=== PATIENT | male | born 1935 ===

== ENCOUNTER 2017-11-04 12:11 | Outpatient (RCR) | payer MEDICARE, BC ==
[2017-10-29 10:31] VITALS: BP 155/72
--- NOTE | 2017-10-29 16:54 | ONCOLOGY CONSULTATION ---
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 ONCOLOGY/HEMATOLOGY HISTORY Patient is an 81-year-old male who was diagnosed with iron deficiency anemia, treated with iron supplementation, as patient could not tolerate oral iron supplement in the past. He had a colonoscopy about six years ago which was normal. His CBC on June 04, 2017 revealed a hemoglobin of 9.6, hematocrit 34.5%, serum iron was 23 and MCV was low at 69.6. He had positive antibodies to celiac disease dual antigen at 50 with positive gliadin antibody at 44 and positive tissue transglutaminase antibody IgA at 4. Patient received intravenous iron supplementation in the past with good response to the Injectafer with improvement of his hemoglobin to normal level. He presented recently with low hemoglobin at 11.8 g/dL and he received Injectafer again 750 mg weekly for two weeks, and despite the infusion of Injectafer, his ferritin was still low at 21, up from 10, and the patient was expected to have blood loss and that is why he got the sub-normal response to Injectafer, so the patient was sent to the manager printing, Dr. Gonzalez, who did colonoscopy and EGD, done on October 15, 2017. His duodenum showed normal mucosa and was negative for celiac sprue or Whipple disease, but a mass was found through his colonoscopy, and the biopsy of that mass came back positive for colonic adenocarcinoma moderately differentiated, and it was negative for microsatellite instability by immune stain. He had a CT chest done on October 25, 2017 which did not show any masses, maybe cysts in the right kidney and fatty infiltration of the liver, but there was no evidence of masses or nodules in his lung. CT abdomen and pelvis done on October 20, 2017 showed nonobstructing cecal tumor of significant size. It extended over a length of 8.5 cm and it measured 5.8 x 4.8 cm, but the other margins are indistinct in some areas, but no invasion of adjacent structures. There were multiple and larger right lower quadrant mesenteric lymph nodes which are suspicious for metastasis. PAST MEDICAL HISTORY 1. Celiac disease. 2. Patient is hard of hearing. 3. Recurrent iron deficiency anemia from his celiac disease and his recent cancer of the cecum. 4. Fractured left hip, March 2013. PAST SURGICAL HISTORY 1. Hip surgery. 2. Tonsillectomy. SOCIAL HISTORY The patient is a with one daughter. He is retired from [employer] industry. Denies any alcohol use for 20 years and no smoking for 35 years after one pack a day for 20 years. FAMILY HISTORY Maternal grandmother had bladder cancer and in her 60s. CURRENT MEDICATIONS 1. Calcium carbonate solution 500 mg/5 mL take 1000 mg by mouth daily. 2. Co-enzyme Q10 100 mg by mouth daily. 3. Vitamin B12 100 mcg by mouth daily. 4. Cyanocobalamin 50 mcg tablet, take one tablet by mouth daily. 5. Lactobacillus acidophilus probiotic 10 billion cell cap by mouth daily. 6. Multivitamin one by mouth daily. 7. Omeprazole 10 mg by mouth daily. 8. Metamucil take by mouth daily. 9. Vitamin C/E/zinc/copper/lutein/ZXN (Preservision Areds 2 oral) take one capsule by mouth two times daily. ALLERGIES No known drug allergies. REVIEW OF SYSTEMS CONSTITUTIONAL: No appetite or weight change. No fever, chills or sweating. No recent infection. HEENT: Ears: No tinnitus or hearing problem. Nose: He has nasal discharge. No epistaxis. Throat: No sore throat or mouth ulcers. Eyes: No diplopia or visual changes. RESPIRATORY: He has cough and exertional shortness of breath. No expectoration or hemoptysis. CARDIOVASCULAR: No chest pain, orthopnea, or paroxysmal nocturnal dyspnea (PND). No edema. No palpitations. GASTROINTESTINAL: No nausea or vomiting. No diarrhea or constipation. No change in bowel movements. No heartburn or swallowing difficulties. No abdominal pain. No jaundice. No hematemesis, melena or rectal bleeding. GENITOURINARY: No hematuria or dysuria. MUSCULOSKELETAL: He has pain in his legs. NEUROLOGICAL: No tingling or numbness in the hands or feet. No headaches or convulsions. HEMATOLOGIC/LYMPHATIC: No bleeding or easy bruising. He is weak, tired and fatigued. No enlarged lymph nodes. SKIN: No skin rash or lumps. PSYCHIATRIC: No anxiety or depression. PHYSICAL EXAMINATION GENERAL: Looks stable. Well-developed, well-nourished, and in no acute distress. VITAL SIGNS: Blood pressure 155/72, pulse 74 per minute, respirations 16 per minute, temperature 98.9, pulse ox 95% on room air. HEENT: Head: Atraumatic. No sinus tenderness to palpation. Eyes: No icterus or conjunctivitis. Mouth and Throat: No oral thrush or mucositis. NECK: Supple. No cervical or supraclavicular lymphadenopathy. LUNGS: Clear to auscultation and percussion bilaterally. HEART: Regular rate and rhythm. No gallops, murmurs, clicks or rubs. ABDOMEN: Soft and lax. No tenderness. No hepatosplenomegaly. No masses. EXTREMITIES: No cyanosis, clubbing or edema. LYMPHATICS: No peripheral lymphadenopathy. NEUROLOGICAL: Conscious, alert and oriented times three. No focal motor or sensory deficits. PSYCHIATRIC: Mood and affect appear normal. SKIN: No skin rash, bruise or purpuric eruption. ASSESSMENT 1. Cecal adenocarcinoma status post colonoscopy and biopsy of the cecal mass done on October 15, 2017 and pathology of the cecal mass came back positive for invasive colonic adenocarcinoma moderately differentiated, and it was negative for microsatellite instability by immune stain. CT chest, abdomen and pelvis done October 2017 showed a large encircling mass at the cecum extending over a length of 8.5 cm, measuring 5.8 x 4.8 cm cross section. No evidence of obstruction of the ileum or colon. The serosal margins are indistinct in some areas. No invasion of adjuvant structures. There are multiple enlarged right lower quadrant mesenteric lymph nodes which are suspicious for metastasis. 2. Celiac disease, on gluten free diet, and his last endoscopy with biopsy of the duodenal mucosa done on October 15, 2017 did not show any evidence of celiac disease, meaning that the patient was strict about his diet with gluten free. 3. Recurrent iron deficiency from celiac disease and recently from his colon cancer. Consider Injectafer 750 mg intravenously weekly for two weeks. PLAN 1. Surgical consult. 2. PET CT scan for evaluation of the mesenteric lymph nodes. If they are positive this means that the patient could have stage IV rather than stage III. 3. Patient to return after the PET scan for further evaluation and management. 4. Patient to contact us for any new concerns or complaints. DACIAD
[~2017-11-04] VITALS: Ht 173.4 cm; Wt 67.2 kg
[2017-11-04 12:23] VITALS: BP 138/70
--- NOTE | 2017-11-04 22:41 | ONCOLOGY FOLLOW UP NOTE ---
EVENT DATE: November 04, 2017 DIAGNOSES 1. Cecal adenocarcinoma. 2. Celiac disease. 3. Current iron deficiency. CHIEF COMPLAINT Patient is here today for followup of his cecal adenocarcinoma. ONCOLOGY/HEMATOLOGY HISTORY Patient is an 81-year-old male who was diagnosed with iron deficiency anemia, treated with iron supplementation, as patient could not tolerate oral iron supplement in the past. He had a colonoscopy about six years ago which was normal. His CBC on June 04, 2017, revealed a hemoglobin of 9.6, hematocrit 34.5%, serum iron was 23, and MCV was low at 69.6. He had positive antibodies to celiac disease dual antigen at 50 with positive gliadin antibody at 44 and positive tissue transglutaminase antibody IgA at 4. Patient received intravenous iron supplementation in the past with good response to the Injectafer with improvement of his hemoglobin to normal level. He presented recently with low hemoglobin at 11.8 g/dL, and he received Injectafer again 750 mg weekly for two weeks. Despite the infusion of Injectafer, his ferritin was still low at 21, up from 10. The patient was suspected to have blood loss, and that is why he got the subnormal response to Injectafer. The patient was sent to the accounts administrator, Dr. Gonzalez, who did colonoscopy and EGD, done on October 15, 2017. His duodenum showed normal mucosa and was negative for celiac sprue or Whipple disease, but a mass was found through his colonoscopy, and the biopsy of that mass came back positive for colonic adenocarcinoma, moderately differentiated. It was negative for microsatellite instability by immune stain. He had a CT chest done on October 25, 2017, which did not show any masses, maybe cysts in the right kidney and fatty infiltration of the liver, but there was no evidence of masses or nodules in his lung. CT abdomen and pelvis done on October 20, 2017, showed nonobstructing cecal tumor of significant size. It extended over a length of 8.5 cm, and it measured 5.8 x 4.8 cm. The other margins are indistinct in some areas, but no invasion of adjacent structures. There were multiple and larger right lower quadrant mesenteric lymph nodes which are suspicious for metastasis. PET/CT scan done on the October showed encircling cecal mass, 8.3 cm in size, with SUV of 14.75 with no evidence of small-bowel obstruction. Mesenteric lymph nodes in the right lower quadrant up 1.3 cm with maximum SUV of 1.27. Two small lymph nodes along the anterior margin of the mass measured 8 mm with maximum SUV 1.51 and 1.19 respectively. No lesions in the liver or the lungs. HISTORY OF PRESENT ILLNESS Patient is here today for followup of his cecal adenocarcinoma. He is doing fine currently. He has some tickling in the throat sometimes. He has also pain in the right thigh. He is weak, tired, and fatigued. Other than that, he is really doing fine. PAST MEDICAL HISTORY 1. Celiac disease. 2. Patient is hard of hearing. 3. Recurrent iron deficiency anemia from his celiac disease and his recent cancer of the cecum. 4. Fractured left hip, March 2013. PAST SURGICAL HISTORY 1. Hip surgery. 2. Tonsillectomy. SOCIAL HISTORY The patient is a with one daughter. He is retired from [employer] industry. Denies any alcohol use for 20 years and no smoking for 35 years after one pack a day for 20 years. FAMILY HISTORY Maternal grandmother had bladder cancer and in her 60s. CURRENT MEDICATIONS 1. Calcium carbonate solution 500 mg/5 mL, take 1000 mg by mouth daily. 2. Co-enzyme Q10 100 mg by mouth daily. 3. Vitamin B12 100 mcg by mouth daily. 4. Cyanocobalamin 50 mcg tablet, take one tablet by mouth daily. 5. Lactobacillus acidophilus probiotic 10 billion cell cap by mouth daily. 6. Multivitamin one by mouth daily. 7. Omeprazole 10 mg by mouth daily. 8. Metamucil take by mouth daily. 9. Vitamin C/E/zinc/copper/lutein/ZXN (Preservision Areds 2 oral), take one capsule by mouth two times daily. ALLERGIES No known drug allergies. REVIEW OF SYSTEMS CONSTITUTIONAL: No appetite or weight change. No fever, chills, or sweating. No recent infection. HEENT: Ears: No tinnitus or hearing problem. Nose: He has nasal discharge. No epistaxis. Throat: No sore throat or mouth ulcers. He has some tickle in the throat sometimes. Eyes: No diplopia or visual changes. RESPIRATORY: No cough and exertional shortness of breath. No expectoration or hemoptysis. CARDIOVASCULAR: No chest pain, orthopnea, or paroxysmal nocturnal dyspnea (PND). No edema. No palpitations. GASTROINTESTINAL: No nausea or vomiting. No diarrhea or constipation. No change in bowel movements. No heartburn or swallowing difficulties. No abdominal pain. No jaundice. No hematemesis, melena or rectal bleeding. GENITOURINARY: No hematuria or dysuria. MUSCULOSKELETAL: He has pain in the right thigh. NEUROLOGICAL: No tingling or numbness in the hands or feet. No headaches or convulsions. HEMATOLOGIC/LYMPHATIC: No bleeding or easy bruising. He is weak, tired, and fatigued. No enlarged lymph nodes. SKIN: No skin rash or lumps. PSYCHIATRIC: No anxiety or depression. PHYSICAL EXAMINATION GENERAL: Looks stable. Well developed, well nourished, and in no acute distress. VITAL SIGNS: Blood pressure 138/70, pulse 91 per minute, respirations 16 per minute, temperature 97.5, pulse ox 93% on room air. HEENT: Head: Atraumatic. No sinus tenderness to palpation. Eyes: No icterus or conjunctivitis. Mouth and Throat: No oral thrush or mucositis. NECK: Supple. No cervical or supraclavicular lymphadenopathy. LUNGS: Clear to auscultation and percussion bilaterally. HEART: Regular rate and rhythm. No gallops, murmurs, clicks, or rubs. ABDOMEN: Soft and lax. No tenderness. No hepatosplenomegaly. No masses. EXTREMITIES: No cyanosis, clubbing, or edema. LYMPHATICS: No peripheral lymphadenopathy. NEUROLOGICAL: Conscious, alert, and oriented times three. No focal motor or sensory deficits. PSYCHIATRIC: Mood and affect appear normal. SKIN: No skin rash, bruise, or purpuric eruption. DIAGNOSTIC DATA PET/CT scan done on the October did reveal the encircling cecal mass, 8.3 cm with SUV 14.75. There were some mesenteric lymph nodes in the right lower quadrant up to 1.3 cm with SUV 1.27 and two small lymph nodes along the anterior margin of the mass measuring 8 mm with SUV of 1.51 and 1.19 respectively. No systemic metastasis. ASSESSMENT 1. Cecal adenocarcinoma, status post colonoscopy and biopsy of the cecal mass done October 15, 2017, and the cecal mass came back positive for invasive colonic adenocarcinoma, moderately differentiated. It was negative for microsatellite instability by immune stain. CT chest, abdomen, and pelvis October 2017 showed a large encircling mass at the cecum extending over the length of 8.5 cm. No evidence of obstruction of the colon or the ileum. Serosal margins are indistinct in some areas. No invasion of adjacent structures. There are multiple enlarged right lower quadrant mesenteric lymph nodes which are suspicious for metastasis. PET/CT scan done on the October did reveal the large cecal mass with standardized uptake value 14.75. There was also right lower quadrant mesenteric lymphadenopathy. None of those lymph nodes reached the threshold criteria on PET scan as their standardized uptake value was low. Patient has been evaluated by , and the patient is scheduled on the November to have his right hemicolectomy. I am planning to see him two to three weeks after the surgery to discuss the pathology and further management if required. I explained that to the patient and his daughter. They are agreeable with the plan of management. 2. Celiac disease, on gluten-free diet. His esophagogastroduodenoscopy and the biopsy of the ileal mucosa October 15, 2017, did not show any evidence of celiac disease. 3. Recurrent iron deficiency from celiac disease and recently from his colon cancer. Consider Injectafer 750 mg intravenously weekly for two weeks if his iron studies are low. PLAN 1. Continue followup. 2. Patient to return two to three weeks after his surgery scheduled on the November for further evaluation and management of his colon cancer. 3. Patient to contact us for any new concerns or complaints. DACIAD
== END 2018-01-27 ==
LOC: ONC 12:11
PROVIDERS: ATTEND Internal Medicine Hematology
DX: C18.0 Malignant neoplasm of cecum (principal); R59.0 Localized enlarged lymph nodes; K90.0 Celiac disease; E61.1 Iron deficiency; Z87.891 Personal history of nicotine dependence; Z79.899 Other long term (current) drug therapy; R05 Cough; R06.02 Shortness of breath; R53.1 Weakness; R53.83 Other fatigue
CPT/HCPCS: G0463 ×2; 99212

== ENCOUNTER 2018-05-13 12:45 | Outpatient (RCR) | payer MEDICARE, BC ==
[2018-02-18 13:54] VITALS: BP 119/69
[2018-02-18] MEDS: HEPARIN FLSH (PORT) 500 UN/5ML IVP PRN (14:51)
--- NOTE | 2018-02-20 03:22 | [facility] ONCOLOGY NOTE ---
EVENT DATE: February 18, 2018 DIAGNOSES 1. Cecal adenocarcinoma. 2. Celiac disease. 3. Current iron deficiency. CHIEF COMPLAINT Patient is here today for followup of his cecal adenocarcinoma. ONCOLOGY HISTORY Patient is an 81-year-old male who was diagnosed with iron deficiency anemia, treated with iron supplementation, as patient could not tolerate oral iron supplement in the past. He had a colonoscopy about six years ago which was normal. His CBC on June 04, 2017, revealed a hemoglobin of 9.6, hematocrit 34.5%, serum iron was 23, and MCV was low at 69.6. He had positive antibodies to celiac disease dual antigen at 50 with positive gliadin antibody at 44 and positive tissue transglutaminase antibody IgA at 4. Patient received intravenous iron supplementation in the past with good response to the Injectafer with improvement of his hemoglobin to normal level. He presented recently with low hemoglobin at 11.8 g/dL, and he received Injectafer again 750 mg weekly for two weeks. Despite the infusion of Injectafer, his ferritin was still low at 21, up from 10. The patient was suspected to have blood loss, and that is why he got the subnormal response to Injectafer. The patient was sent to the audit lead, Dr. Gonzalez, who did colonoscopy and EGD, done on October 15, 2017. His duodenum showed normal mucosa and was negative for celiac sprue or Whipple disease, but a mass was found through his colonoscopy, and the biopsy of that mass came back positive for colonic adenocarcinoma, moderately differentiated. It was negative for microsatellite instability by immune stain. He had a CT chest done on October 25, 2017, which did not show any masses, maybe cysts in the right kidney and fatty infiltration of the liver, but there was no evidence of masses or nodules in his lung. CT abdomen and pelvis done on October 20, 2017, showed nonobstructing cecal tumor of significant size. It extended over a length of 8.5 cm, and it measured 5.8 x 4.8 cm. The other margins are indistinct in some areas, but no invasion of adjacent structures. There were multiple and larger right lower quadrant mesenteric lymph nodes which are suspicious for metastasis. PET/CT scan done on the October showed encircling cecal mass, 8.3 cm in size, with SUV of 14.75 with no evidence of small-bowel obstruction. Mesenteric lymph nodes in the right lower quadrant up 1.3 cm with maximum SUV of 1.27. Two small lymph nodes along the anterior margin of the mass measured 8 mm with maximum SUV 1.51 and 1.19 respectively. No lesions in the liver or the lungs. Patient had right hemicolectomy done on 08 November 2017, and the pathology came back positive for 11.5 cm ileocecal tumor, poorly differentiated adenocarcinoma with invasion of the muscularis propria into the pericolonic fat, with negative margins and negative lymphovascular invasion and perineural invasion. Thirty lymph nodes were negative for metastasis. No perforation. His surgery was complicated with leakage and abscess formation, and he had ileal resection and resection of the ileocolonic anastomosis with creation of a colostomy done on 25 November 2017. HISTORY OF PRESENT ILLNESS Patient is here today for followup of his colon cancer. He is complaining of some cough with expectoration. He also has some numbness in the right little finger, which is chronic. He is also weak, tired, and fatigued. PAST MEDICAL HISTORY 1. Celiac disease. 2. Patient is hard of hearing. 3. Recurrent iron deficiency anemia from his celiac disease and his recent cancer of the cecum. 4. Fractured left hip, March 2013. PAST SURGICAL HISTORY 1. Hip surgery. 2. Tonsillectomy. SOCIAL HISTORY The patient is a with one daughter. He is retired from [employer] industry. Denies any alcohol use for 20 years and no smoking for 35 years after one pack a day for 20 years. FAMILY HISTORY Maternal grandmother had bladder cancer and in her 60s. CURRENT MEDICATIONS 1. Calcium carbonate solution 500 mg/5 mL, take 1000 mg by mouth daily. 2. Co-enzyme Q10 100 mg by mouth daily. 3. Vitamin B12 100 mcg by mouth daily. 4. Cyanocobalamin 50 mcg tablet, take one tablet by mouth daily. 5. Lactobacillus acidophilus probiotic 10 billion cell cap by mouth daily. 6. Multivitamin one by mouth daily. 7. Omeprazole 10 mg by mouth daily. 8. Metamucil take by mouth daily. 9. Vitamin C/E/zinc/copper/lutein/ZXN (PreserVision AREDS 2 oral), take one capsule by mouth two times daily. ALLERGIES No known drug allergies. REVIEW OF SYSTEMS CONSTITUTIONAL: No appetite or weight change. No fever, chills or sweating. No recent infection. HEENT: Ears: No tinnitus or hearing problem. Nose: No nasal discharge or epistaxis. Throat: No sore throat or mouth ulcers. Eyes: No diplopia or visual changes. RESPIRATORY: He has cough with expectoration. CARDIOVASCULAR: No chest pain, orthopnea, or paroxysmal nocturnal dyspnea (PND). No edema. No palpitations. GASTROINTESTINAL: No nausea or vomiting. No diarrhea or constipation. No change in bowel movements. No heartburn or swallowing difficulties. No abdominal pain. No jaundice. No hematemesis, melena or rectal bleeding. GENITOURINARY: No hematuria or dysuria. MUSCULOSKELETAL: No pain in the muscles, joints or bones. NEUROLOGICAL: He has numbness in the right little finger. HEMATOLOGIC/LYMPHATIC: He is weak, tired, and fatigued. SKIN: No skin rash or lumps. PSYCHIATRIC: No anxiety or depression. PHYSICAL EXAMINATION GENERAL: Looks stable. Well-developed, well-nourished, and in no acute distress. VITAL SIGNS: Blood pressure 119/69, pulse 78 per minute, respirations 16 per minute, temperature 96.3, pulse oximetry 92% on room air. HEENT: Head: Atraumatic. No sinus tenderness to palpation. Eyes: No icterus or conjunctivitis. Mouth and throat: No oral thrush or mucositis. NECK: Supple. No cervical or supraclavicular lymphadenopathy. LUNGS: Clear to auscultation and percussion bilaterally. HEART: Regular rate and rhythm. No gallops, murmurs, clicks or rubs. ABDOMEN: Soft and lax. No tenderness. No hepatosplenomegaly. No masses. EXTREMITIES: No cyanosis, clubbing or edema. LYMPHATICS: No peripheral lymphadenopathy. NEUROLOGICAL: Conscious, alert and oriented times three. No focal motor or sensory deficits. PSYCHIATRIC: Mood and affect appear normal. SKIN: No skin rash, bruise or purpuric eruption. DIAGNOSTIC DATA CBC showed a white count of 7.1, hemoglobin 12.5, hematocrit 38.1, platelet 325,000. Chem panel totally normal except for blood sugar 124, alkaline phosphatase 134. Serum iron is low at 38. TIBC is 292.6. Iron saturation is 13%, ferritin 59. CEA is 2.3, which is down from 3.6. ASSESSMENT 1. 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 Thirty lymph nodes were negative for metastasis. No perforation. His surgery was complicated with leakage and abscess formation, and he had ileal resection and resection of the ileocolonic anastomosis done on 25 November 2017, and he is currently on colostomy. PET/CT scan done on 29 October 2017 did reveal large cecal mass with SUV of 14.75. There was also right lower quadrant mesenteric lymphadenopathy. None of those lymph nodes reached the threshold criteria on PET scan to be considered positive, and his pathology was also negative for lymphadenopathy. His current CEA is 2.3, which is down from 3.6. I am planning to continue followup. I will see him again in three months from now with CBC, chemistry panel, and CEA. 2. Celiac disease, on gluten-free diet. Patient had iron deficiency, and I am planning to infuse one infusion of Injectafer 750 mg, as the patient is complaining of fatigue and tiredness currently. PLAN 1. Injectafer 750 mg intravenous infusion today. 2. Patient to return in three months with CBC, chem panel, CEA. 3. Patient to contact us for any new concerns or complaints. GEOVANY
[~2018-05-13 12:45] MED LIST: ALTEPLASE RECOMB 2 MG VIAL IVP PRN; DEXTROSE 5%(*) 100 ML BAG 100 ML IVPB PRN; FERRIC CARBOXY 750 MG SDV 750 MG in NS(*) 0.9% 250 ML BAG 250 ML IVP ONE; LIDOCAINE/SOD BICARB 8.4% SYR ID PRN; NS(*) 0.9% 100 ML BAG 100 ML IVPB PRN; NS(*) 0.9% 500 ML BAG 500 ML IV PRN; WATER FOR INJ,STERILE 20 ML IVP PRN
[2018-05-13 13:07] VITALS: BP 146/69
[2018-05-13] MEDS: HEPARIN FLSH (PORT) 500 UN/5ML IVP PRN (13:26)
[2018-05-13 13:28] LABS: PLATELET COUNT, AUTOMATED 262 K/uL (150-450)
== END 2018-05-19 ==
LOC: SPU 12:45
PROVIDERS: ATTEND Internal Medicine Hematology
DX: C18.0 Malignant neoplasm of cecum (principal); R59.0 Localized enlarged lymph nodes; K90.0 Celiac disease; E61.1 Iron deficiency; Z87.891 Personal history of nicotine dependence; Z79.899 Other long term (current) drug therapy; R05 Cough; R06.02 Shortness of breath; R53.1 Weakness; R53.83 Other fatigue
CPT/HCPCS: 36591; 82378; 85025; 96365; G0463; J1439; J1642; J7050; 82040; 82247; 82310; 82374; 82435; 82565; 82947; 84075; 84132; 84155; 84295; 84450; 84460; 84520; 99212

== ENCOUNTER 2018-08-16 13:54 | Outpatient (RCR) | payer MEDICARE, BC ==
[2018-05-20 14:24] VITALS: BP 139/75
--- NOTE | 2018-05-21 14:36 | [facility] ONCOLOGY NOTE ---
EVENT DATE: May 20, 2018 DIAGNOSES 1. Cecal adenocarcinoma. 2. Celiac disease. 3. Current iron deficiency. CHIEF COMPLAINT Patient is here today for followup of his cecal adenocarcinoma. ONCOLOGY HISTORY Patient is an 82-year-old male who was diagnosed with iron deficiency anemia, treated with iron supplementation, as patient could not tolerate oral iron supplement in the past. He had a colonoscopy about six years ago which was normal. His CBC on June 04, 2017, revealed a hemoglobin of 9.6, hematocrit 34.5%, serum iron was 23, and MCV was low at 69.6. He had positive antibodies to celiac disease dual antigen at 50 with positive gliadin antibody at 44 and positive tissue transglutaminase antibody IgA at 4. Patient received intravenous iron supplementation in the past with good response to the Injectafer with improvement of his hemoglobin to normal level. He presented recently with low hemoglobin at 11.8 g/dL, and he received Injectafer again 750 mg weekly for two weeks. Despite the infusion of Injectafer, his ferritin was still low at 21, up from 10. The patient was suspected to have blood loss, and that is why he got the subnormal response to Injectafer. The patient was sent to the joint runner, Dr. Gonzalez, who did colonoscopy and EGD, done on October 15, 2017. His duodenum showed normal mucosa and was negative for celiac sprue or Whipple disease, but a mass was found through his colonoscopy, and the biopsy of that mass came back positive for colonic adenocarcinoma, moderately differentiated. It was negative for microsatellite instability by immune stain. He had a CT chest done on October 25, 2017, which did not show any masses, maybe cysts in the right kidney and fatty infiltration of the liver, but there was no evidence of masses or nodules in his lung. CT abdomen and pelvis done on October 20, 2017, showed nonobstructing cecal tumor of significant size. It extended over a length of 8.5 cm, and it measured 5.8 x 4.8 cm. The other margins are indistinct in some areas, but no invasion of adjacent structures. There were multiple and larger right lower quadrant mesenteric lymph nodes which are suspicious for metastasis. PET/CT scan done on the October showed encircling cecal mass, 8.3 cm in size, with SUV of 14.75 with no evidence of small-bowel obstruction. Mesenteric lymph nodes in the right lower quadrant up to 1.3 cm with maximum SUV of 1.27. Two small lymph nodes along the anterior margin of the mass measured 8 mm with maximum SUV 1.51 and 1.19 respectively. No lesions in the liver or the lungs. Patient had right hemicolectomy done on November, and the pathology came back positive for 11.5 cm ileocecal tumor, poorly differentiated adenocarcinoma with invasion of the muscularis propria into the pericolonic fat, with negative margins and negative lymphovascular invasion and perineural invasion. Thirty lymph nodes were negative for metastasis. No perforation. His surgery was complicated with leakage and abscess formation, and he had ileal resection and resection of the ileocolonic anastomosis with creation of a colostomy done on the November. HISTORY OF PRESENT ILLNESS Patient is here today for followup of his colon cancer. He is complaining of recent upper respiratory tract infection with cough and expectoration, nasal discharge, and sore throat which are getting better. He is also complaining of numbness in the the right little finger, but other than that, he is really doing very well, and he is starting to gain weight. PAST MEDICAL HISTORY 1. Celiac disease. 2. Patient is hard of hearing. 3. Recurrent iron deficiency anemia from his celiac disease and his recent cancer of the cecum. 4. Fractured left hip, March 2013. PAST SURGICAL HISTORY 1. Hip surgery. 2. Tonsillectomy. SOCIAL HISTORY The patient is a with one daughter. He is retired from [employer]. Denies any alcohol use for 20 years and no smoking for 35 years after one pack a day for 20 years. FAMILY HISTORY Maternal grandmother had bladder cancer and in her 60s. CURRENT MEDICATIONS 1. Calcium carbonate solution 500 mg/5 mL, take 1000 mg by mouth daily. 2. Co-enzyme Q10 100 mg by mouth daily. 3. Vitamin B12 100 mcg by mouth daily. 4. Cyanocobalamin 50 mcg tablet, take one tablet by mouth daily. 5. Lactobacillus acidophilus probiotic 10 billion cell cap by mouth daily. 6. Multivitamin one by mouth daily. 7. Omeprazole 10 mg by mouth daily. 8. Metamucil take by mouth daily. 9. Vitamin C/E/zinc/copper/lutein/ZXN (PreserVision AREDS 2 oral), take one capsule by mouth two times daily. ALLERGIES No known drug allergies. REVIEW OF SYSTEMS CONSTITUTIONAL: No appetite or weight change. No fever, chills, or sweating. No recent infection. HEENT: Ears: No tinnitus or hearing problem. Nose: He has nasal discharge. No epistaxis. Throat: He has a sore throat. No mouth ulcers. Eyes: No diplopia or visual changes. RESPIRATORY: No shortness of breath. He has cough with expectoration. No hemoptysis. CARDIOVASCULAR: No chest pain, orthopnea, or paroxysmal nocturnal dyspnea (PND). No edema. No palpitations. GASTROINTESTINAL: No nausea or vomiting. No diarrhea or constipation. No change in bowel movements. No heartburn or swallowing difficulties. No abdominal pain. No jaundice. No hematemesis, melena, or rectal bleeding. GENITOURINARY: No hematuria or dysuria. MUSCULOSKELETAL: No pain in the muscles, joints, or bones. NEUROLOGIC: He has numbness in the right little finger. No headaches or convulsions. HEMATOLOGIC/LYMPHATIC: No bleeding or easy bruising. No weakness or fatigue. No enlarged lymph nodes. SKIN: No skin rash or lumps. PSYCHIATRIC: No anxiety or depression. PHYSICAL EXAMINATION GENERAL: Looks stable. Well developed, well nourished, and in no acute distress. VITAL SIGNS: Blood pressure 139/75, pulse 99 per minute, respirations 16 per minute, temperature 97.8, pulse ox 92% on room air. HEENT: Head: Atraumatic. No sinus tenderness to palpation. Eyes: No icterus or conjunctivitis. Mouth and Throat: No oral thrush or mucositis. NECK: Supple. No cervical or supraclavicular lymphadenopathy. LUNGS: Clear to auscultation and percussion bilaterally. HEART: Regular rate and rhythm. No gallops, murmurs, clicks, or rubs. ABDOMEN: Soft and lax. No tenderness. No hepatosplenomegaly. No masses. EXTREMITIES: No cyanosis, clubbing, or edema. LYMPHATICS: No peripheral lymphadenopathy. NEUROLOGIC: Conscious, alert, and oriented times three. No focal motor or sensory deficits. PSYCHIATRIC: Mood and affect appear normal. SKIN: No skin rash, bruise, or purpuric eruption. DIAGNOSTIC DATA CBC showed a white count 7.8, hemoglobin 13.7, hematocrit 42.1, platelet 262,000. Chem panel totally normal except chloride 108, creatinine 1.7, BUN 29. CEA is 2.8. ASSESSMENT 1. 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 Thirty lymph nodes were negative for metastasis. No perforation. Surgery was complicated with leakage and abscess formation. He had ileal resection and resection of the ileocolonic anastomosis done on the November, and he is currently on colostomy. PET/CT scan done the October did reveal large cecal mass with SUV 14.75. There was also right lower quadrant mesenteric lymphadenopathy. None of those lymph nodes reached the threshold criteria on PET scan to be considered positive, and his pathology was also negative for lymphadenopathy. His current CEA is 2.8, which is normal. I am planning to continue followup. I will see him again in three months with CBC, chem panel, and CEA. 2. Celiac disease, on gluten-free diet. Patient requires intravenous Injectafer supplementation sometimes whenever iron studies are low. PLAN 1. Continue followup. 2. Patient to return in three months with CBC, chem panel, CEA. 3. Patient to contact us for any new concern or complaint. 4. Port to flush every month. MTDD
[2018-08-16 14:00] VITALS: BP 136/80
[2018-08-16 14:12] LABS: PLATELET COUNT, AUTOMATED 267 K/uL (150-450)
== END 2018-08-18 ==
LOC: SPU 13:54
PROVIDERS: ATTEND Internal Medicine Hematology
DX: C18.0 Malignant neoplasm of cecum (principal); R59.0 Localized enlarged lymph nodes; K90.0 Celiac disease; E61.1 Iron deficiency; Z87.891 Personal history of nicotine dependence; Z79.899 Other long term (current) drug therapy; R05 Cough
CPT/HCPCS: 36415; 82378; 85025; G0463; 82040; 82247; 82310; 82374; 82435; 82565; 82947; 84075; 84132; 84155; 84295; 84450; 84460; 84520; 99212